=== PATIENT | female | born 1970 | race Caucasian/White ===

== ENCOUNTER → 2016-03-16 | Outpatient (CLI) | payer BC | END | disposition home or self-care (01) | LOC: C.PAPS 08:06 | PROVIDERS: ATTEND Family Medicine | DX: Z12.4 Encounter for screening for malignant neoplasm of cervix (principal) ==

== ENCOUNTER → 2016-03-18 | Outpatient (CLI) | payer BC ==
--- NOTE | 2016-03-18 16:38 | DIAGNOSTIC IMAGING REPORT ---
PELVIC ULTRASOUND CLINICAL HISTORY: Tenderness of female pelvic organs. COMPARISON STUDY: None TECHNIQUE: Transabdominal and transvaginal sonography of the pelvis was performed. FINDINGS: The uterus measures 7.9 x 5.4 x 5.2 cm. The endometrium measures 1.1 cm in thickness. The right ovary measures 2.6 x 1.5 x 1.6 cm the left measures 2 x 1.5 x 2.2 cm. Color flow is identified within each ovary. No free fluid was identified. IMPRESSION: Unremarkable pelvic ultrasound. Electronically signed by: Jerry Melvin M.D. 03/18/2016 4:36 PM Dictated Date/Time: 03/18/2016 4:35 PM
== END | disposition home or self-care (01) ==
LOC: C.ULTR 15:52
PROVIDERS: ATTEND Family Medicine
DX: R10.2 Pelvic and perineal pain (principal)

== ENCOUNTER → 2016-09-16 | Outpatient (CLI) | payer BC | END | disposition home or self-care (01) | LOC: C.LABMFLN 14:10 | PROVIDERS: ATTEND Family Medicine | DX: J02.9 Acute pharyngitis, unspecified (principal); I50.30 Unspecified diastolic (congestive) heart failure ==